=== PATIENT | male | born 1965 | race Caucasian/White ===

== ENCOUNTER → 2022-02-12 | Outpatient (CLI) | payer OTHER ==
--- NOTE | 2022-02-12 09:41 | Diagnostic Imaging Report ---
INDICATION: Metallic orbital foreign body suspected, MRI planned. Two-view orbits performed. There is no metallic opaque orbital or periorbital foreign body. Projecting lateral to the left maxilla is a tiny 1.6 mm metallic like radiopacity. IMPRESSION: 1. Tiny punctate juxta maxillary metallic foreign body. 2. However, no opaque orbital or periorbital foreign body found. Dictated by: Dictated on workstation # [id number]
--- NOTE | 2022-02-12 12:36 | Diagnostic Imaging Report ---
Clinical Indication: Patient injured his right shoulder and pulled it out of place and ever since then he has had right-sided C-spine pain. Exam: MRI of the cervical spine performed without IV contrast. Sequences include sagittal T1, sagittal T2, sagittal T2 fat-sat, and axial T2. Comparison: None. Findings: Cervical spine has normal alignment with no fracture or dislocation. There is normal craniocervical and anterior atlanto-odontoid alignment. Cervical spinal cord has normal anatomic appearance with no abnormal cord signal. Limited visualization of the posterior fossa is unremarkable. There is no paraspinal soft tissue abnormality. C1-C2: Unremarkable. C2-C3: There is moderate right facet arthropathy. There is no significant central spinal canal or neural foramen narrowing. C3-C4: There is grade 1 anterolisthesis of C3 on C4 with mild diffuse disk bulge. There is degenerative marrow edema involving the right C3-C4 facets and moderate right facet arthropathy. There is at least moderate right neural foramen narrowing. There is no significant left neural foramen narrowing. There is no significant central canal stenosis. C4-C5: Unremarkable. C5-C6: There is diffuse disk bulge with moderate loss of disk space height. There are hypertrophic uncinate spurs and posterior disk spurs. There is moderate to severe bilateral neural foramen narrowing with the left side more than the right. There is mild to moderate central canal stenosis. C6-C7: Unremarkable. C7-T1: Unremarkable. Impression: 1: There is grade 1 anterolisthesis of C3 on C4 with mild diffuse disk bulge. There is moderate right facet arthropathy and degenerative marrow edema involving the right facet. There is moderate right neural foramen narrowing. 2: There is a C5-C6 diffuse disk bulge with uncinate spurs and facet arthropathy. There is moderate to severe bilateral neural foramen narrowing. There is mild to moderate central canal stenosis. Dictated by: Dictated on workstation # [id number]
== END ==
LOC: RAD 08:29
PROVIDERS: ATTEND Nurse Practitioner
DX: M43.12 Spondylolisthesis, cervical region (principal); M50.122 Cervical disc disorder at C5-C6 level with radiculopathy; M48.02 Spinal stenosis, cervical region
CPT/HCPCS: 72141